=== PATIENT | male | born 1960 | race African-American/Black ===

== ENCOUNTER → 2018-10-06 | Outpatient (CLI) | payer OTHER ==
--- NOTE | 2018-10-06 17:34 | XCELERA REPORT ---
[address] [address] Lower Extremity Arterial Evaluation Name: OSEI VIDAL Age: 58 yrs Gender: Male : 1960 Patient Status: Outpatient Patient Location: Study Date: 10/06/2018 09:04 AM Procedure: A color flow and duplex scan of the lower extremity arteries was performed bilaterally with velocity and waveform anaylsis. 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 Biphasic with low normal velocity in the Anterior Tibial artery. Ankle Brachial index was not done. Left Side Arterial Evaluation Decreased velocity and biphasic waveforms noted from the Common Femoral artery to the Posterior Tibial . Monophasic with decreased velocity in the Anterior Tibial artery. Ankle Brachial index was not done. Interpretation Summary Moderate hemodynamically significant lesions in the bilateral lower extremities, on duplex imaging, at rest. Inflow disease on left, distal bilaterally suggested. : RONI ORTEGA > Tiago Mcdaniel
== END ==
LOC: SP 11:22
PROVIDERS: ATTEND Preventive Medicine Undersea and Hyperbaric Medicine
DX: I73.9 Peripheral vascular disease, unspecified (principal)
CPT/HCPCS: 93925

== ENCOUNTER 2019-04-22 14:25 | Emergency (ER) | payer OTHER ==
--- NOTE | 2019-04-22 14:52 | ER Document Report ---
ED Medical Screen (RME) - General Chief Complaint: Nausea/Vomiting Stated Complaint: VOMITING Time Seen by Provider: 04/22/19 14:39 Primary Care Provider: RONI ORTEGA DPM [Primary Care Provider] - Follow up as needed Mode of Arrival: Ambulatory Information source: Patient Notes: Patient presents to the emergency department with reports of vomiting for the past 6 days. Reports he has not been able to take his blood pressure medication or any medication or drink or eat for the past 6 days. Patient reports history of pancreatitis. He does admit to having a shot of liquor on Wednesday. Following that he has had the symptoms. Reports some abdominal discomfort. No c/o pain with abdominal palpation. Reports last bowel movement was Wednesday. I have greeted and performed a rapid initial assessment of this patient. A comprehensive ED assessment and evaluation of the patient, analysis of test results and completion of the medical decision making process will be conducted by additional ED providers. Dictation of this chart was performed using voice recognition software; therefore, there may be some unintended grammatical errors. TRAVEL OUTSIDE OF THE [place] IN LAST 30 DAYS: No - Related Data Allergies/Adverse Reactions: No Known Allergies Allergy (Verified 04/22/19 14:31) Past Medical History - Past Medical History Cardiac Medical History: Reports: Hx Hypercholesterolemia, Hx Hypertension Denies: Hx Coronary Artery Disease, Hx Heart Attack Pulmonary Medical History: Reports: Hx COPD - Not currently taking any meds, Hx Pneumonia - yrs ago Denies: Hx Asthma, Hx Bronchitis Neurological Medical History: Denies: Hx Cerebrovascular Accident, Hx Seizures Renal/ Medical History: Denies: Hx Peritoneal Dialysis GI Medical History: Reports: Hx Gastroesophageal Reflux Disease Musculoskeltal Medical History: Denies Hx Arthritis Past Surgical History: Reports: Hx Appendectomy - Immunizations Hx Diphtheria, Pertussis, Tetanus Vaccination: Yes Physical Exam - Vital signs Vitals: Temp Pulse Resp BP Pulse Ox 98.5 F 80 18 129/88 H 98 04/22/19 14:36 04/22/19 14:36 04/22/19 14:36 04/22/19 14:36 04/22/19 14:36 Course - Vital Signs Vital signs: Temp Pulse Resp BP Pulse Ox 98.5 F 80 18 129/88 H 98 04/22/19 14:36 04/22/19 14:36 04/22/19 14:36 04/22/19 14:36 04/22/19 14:36 Doctor's Discharge - Discharge Referrals: RONI ORTEGA DPM [Primary Care Provider] - Follow up as needed
[2019-04-22 15:00] LABS: ABSOLUTE BASOPHILS # (AUTO) 0.1 10^3/uL (0.0-0.2); ABSOLUTE LYMPHOCYTES (AUTO) 1.7 10^3/uL (0.5-4.7); ABSOLUTE MONOCYTES (AUTO) 0.5 10^3/uL (0.1-1.4); ABSOLUTE NEUT (AUTO) 2.3 10^3/uL (1.7-8.2); BASOPHILS % (AUTO) 1.1 % (0-2); EOSINOPHILS % (AUTO) 0.5 % (0-6); HEMATOCRIT 46.3 % (37.9-51.0); HEMOGLOBIN 15.7 g/dL (13.5-17.0); LYMPHOCYTES % (AUTO) 38.5 % (13-45); MEAN CORPUSCULAR HEMOGLOBIN 28.7 pg (27.0-33.4); MEAN CORPUSCULAR VOLUME 85 fl (80-97); MONOCYTES % (AUTO) 10.2 % (3-13); PLATELET COUNT 205 10^3/uL (150-450); RED BLOOD COUNT 5.48 10^6/uL (4.35-5.55); SEGMENTED NEUTROPHILS % (AUTO) 49.7 % (42-78); TOTAL CELLS COUNTED % (AUTO) 100 %; WHITE BLOOD COUNT 4.5 10^3/uL (4.0-10.5)
[2019-04-22 15:20] LABS: ALANINE AMINOTRANSFERASE 25 U/L (21-72); ALBUMIN 4.8 g/dL (3.5-5.0); ALKALINE PHOSPHATASE 87 U/L (38-126); AMYLASE 110 U/L (30-110); ANION GAP 11 (5-19); ASPARTATE AMINO TRANSFERASE 38 U/L (17-59); BILIRUBIN,DIRECT 0.3 mg/dL (0.0-0.4); BILIRUBIN,TOTAL 0.8 mg/dL (0.2-1.3); BLOOD UREA NITROGEN 13 mg/dL (7-20); CALCIUM 9.9 mg/dL (8.4-10.2); CARBON DIOXIDE 26 mmol/L (22-30); CHLORIDE 98 mmol/L (98-107); GLUCOSE 123 mg/dL (75-110); LIPASE 75.1 U/L (23-300); POTASSIUM 3.9 mmol/L (3.6-5.0); SODIUM 134.9 mmol/L (137-145); TOTAL PROTEIN 9.1 g/dL (6.3-8.2)
[2019-04-22 15:27] LABS: ALCOHOL < 10 mg/dL (NONE DETECTED)
[2019-04-22 15:41] LABS: APPEARANCE,URINE SLIGHTLY-CLOUDY; BILIRUBIN,URINE NEGATIVE (NEGATIVE); COLOR,URINE YELLOW; GLUCOSE, URINE NEGATIVE (NEGATIVE); KETONES,URINE 20 mg/dL (NEGATIVE); LEUKOCYTE ESTERASE,URINE NEGATIVE (NEGATIVE); NITRITE,URINE NEGATIVE (NEGATIVE); PROTEIN,URINE 100 mg/dL (NEGATIVE); URINE SPECIFIC GRAVITY 1.027
--- NOTE | 2019-04-22 15:47 | ER Document Report ---
ED General - General Chief Complaint: Nausea/Vomiting Stated Complaint: VOMITING Time Seen by Provider: 04/22/19 14:39 Primary Care Provider: RONI ORTEGA DPM [ACTIVE STAFF] - Follow up in 3-5 days Mode of Arrival: Ambulatory TRAVEL OUTSIDE OF THE [place] IN LAST 30 DAYS: No - HPI Notes: Patient is a 59-year-old male that presents to the emergency department for chief complaint of abdominal pain nausea and vomiting. Patient reports Wednesday he began having nausea and vomiting. He stated initially he was vomiting every hour but the vomiting has slowed to once or twice a day. he reports one episode of emesis today and states it was around 130 this a fternoon. Patient states he has not had a bowel movement since Wednesday but is not eating much. He did get magnesium citrate but has not taken it for concern that he may vomit it back up. He states he is passing gas. He reports history of cholecystectomy, appendectomy, and bowel obstructions in the past. He reports a mild diffuse abdominal bloating sensation. He states it is a achy pain when he vomits. He states the pain is better when he is sitting in the position. Denies associated fever, chills, chest pain, shortness of breath, palpitations and syncope. Past Medical History: History of pancreatitis, hypertension Past Surgical History: Cholecystectomy, appendectomy Social History: Occasional alcohol. Occasional tobacco. Denies drug use Family History: Reviewed and noncontributory for presenting illness Allergies: Reviewed, see documented allergy list. REVIEW OF SYSTEMS: CONSTITUTIONAL : No fever No chills No diaphoresis No recent illness EENT: No vision changes No congestion No sore throat CARDIOVASCULAR: No chest pain No palpitations RESPIRATORY: No shortness of breath No cough No difficulty breathing GASTROINTESTINAL: abdominal pain nausea vomiting Constipation No diarrhea GENITOURINARY: No dysuria No hematuria No difficulty urinating MUSCULOSKELETAL: No back pain No leg pain No arm pain SKIN: No rashes No lesions LYMPHATIC: No swollen, enlarged glands. NEUROLOGICAL: No lightheadedness No headache No weakness No paresthesias PSYCHIATRIC: No anxiety No depression PHYSICAL EXAMINATION: Vital signs reviewed, nursing noted reviewed. GENERAL: Well-appearing, well-nourished and in no acute distress. HEAD: Atraumatic, normocephalic. EYES: Eyes appear normal, extraocular movements intact, sclera anicteric, conjunctiva are normal. ENT: nares patent, oropharynx clear without exudates. Moist mucous membranes. NECK: Normal range of motion, supple without lymphadenopathy LUNGS: Breath sounds clear to auscultation bilaterally and equal. No wheezes rales or rhonchi. HEART: Regular rate and rhythm without murmurs ABDOMEN: Soft, nontender, normoactive bowel sounds. No rebound, guarding, or rigidity. No masses appreciated. EXTREMITIES: Nontender, good range of motion, no pitting or edema. NEUROLOGICAL: No focal neurological deficits. Moves all extremities spontaneously Motor and sensory grossly intact on exam. PSYCH: Normal mood, normal affect. SKIN: Warm, Dry, normal turgor, no rashes or lesions noted on exposed skin - Related Data Allergies/Adverse Reactions: No Known Allergies Allergy (Verified 04/22/19 14:31) Past Medical History - General Information source: Patient - Social History Smoking Status: Unknown if Ever Smoked Family History: Reviewed & Not Pertinent Patient has suicidal ideation: No Patient has homicidal ideation: No - Past Medical History Cardiac Medical History: Reports: Hx Hypercholesterolemia, Hx Hypertension Denies: Hx Coronary Artery Disease, Hx Heart Attack Pulmonary Medical History: Reports: Hx COPD - Not currently taking any meds, Hx Pneumonia - yrs ago Denies: Hx Asthma, Hx Bronchitis Neurological Medical History: Denies: Hx Cerebrovascular Accident, Hx Seizures Renal/ Medical History: Denies: Hx Peritoneal Dialysis GI Medical History: Reports: Hx Gastroesophageal Reflux Disease Musculoskeletal Medical History: Denies Hx Arthritis Past Surgical History: Reports: Hx Appendectomy - Immunizations Hx Diphtheria, Pertussis, Tetanus Vaccination: Yes Physical Exam - Vital signs Vitals: Temp Pulse Resp BP Pulse Ox 98.5 F 80 18 129/88 H 98 04/22/19 14:36 04/22/19 14:36 04/22/19 14:36 04/22/19 14:36 04/22/19 14:36 Course - Re-evaluation Re-evalutation: 04/22/19 15:46 Vitals reviewed. Nursing notes reviewed. Patient is well-appearing and in no acute distress. He has no abdominal tenderness and stated that it felt good when I was palpating his abdomen. His lab work shows no elevated lipase to suggest acute pancreatitis. He has no renal insufficiency or electrolyte derangement. Clinically appears well-hydrated and nontoxic. He has no leukocytosis to suggest acute infection. KUB will be ordered to screen for possible bowel obstruction however my suspicion at this point is low given his benign abdominal exam. Laboratory 04/22/19 04/22/19 14:50 14:50 WBC 4.5 RBC 5.48 Hgb 15.7 Hct 46.3 MCV 85 MCH 28.7 MCHC 34.0 RDW 14.0 Plt Count 205 Seg Neutrophils % 49.7 Lymphocytes % 38.5 Monocytes % 10.2 Eosinophils % 0.5 Basophils % 1.1 Absolute Neutrophils 2.3 Absolute Lymphocytes 1.7 Absolute Monocytes 0.5 Absolute Eosinophils 0.0 Absolute Basophils 0.1 Sodium 134.9 L Potassium 3.9 Chloride 98 Carbon Dioxide 26 Anion Gap 11 BUN 13 Creatinine 0.84 Est GFR ( Amer) > 60 Est GFR (Non-Af Amer) > 60 Glucose 123 H Calcium 9.9 Total Bilirubin 0.8 Direct Bilirubin 0.3 Neonat Total Bilirubin Not Reportable Neonat Direct Bilirubin Not Reportable Neonat Indirect Bili Not Reportable AST 38 ALT 25 Alkaline Phosphatase 87 Total Protein 9.1 H Albumin 4.8 Amylase 110 Lipase 75.1 Serum Alcohol < 10 04/22/19 16:34 Patient's KUB shows no free air or pattern of obstruction. He is otherwise well-appearing. He will be discharged home with Zofran. Patient told to take the magnesium citrate that he has at home for his apparent constipation. He will follow with primary care for reevaluation in the next few days. He will return for new or worsening symptoms. KUB X-Ray 04/22/19 15:44 IMPRESSION: Nonobstructive pattern of bowel gas with gas present to the rectum. There is gas and stool present in the left and right colon without obvious large burden of stool. No free air in the abdomen on supine radiograph. Laboratory 04/22/19 04/22/19 04/22/19 14:50 14:50 15:08 WBC 4.5 RBC 5.48 Hgb 15.7 Hct 46.3 MCV 85 MCH 28.7 MCHC 34.0 RDW 14.0 Plt Count 205 Seg Neutrophils % 49.7 Lymphocytes % 38.5 Monocytes % 10.2 Eosinophils % 0.5 Basophils % 1.1 Absolute Neutrophils 2.3 Absolute Lymphocytes 1.7 Absolute Monocytes 0.5 Absolute Eosinophils 0.0 Absolute Basophils 0.1 Sodium 134.9 L Potassium 3.9 Chloride 98 Carbon Dioxide 26 Anion Gap 11 BUN 13 Creatinine 0.84 Est GFR ( Amer) > 60 Est GFR (Non-Af Amer) > 60 Glucose 123 H Calcium 9.9 Total Bilirubin 0.8 Direct Bilirubin 0.3 Neonat Total Bilirubin Not Reportable Neonat Direct Bilirubin Not Reportable Neonat Indirect Bili Not Reportable AST 38 ALT 25 Alkaline Phosphatase 87 Total Protein 9.1 H Albumin 4.8 Amylase 110 Lipase 75.1 Urine Color YELLOW Urine Appearance SLIGHTLY-CLOUDY Urine pH 6.0 Ur Specific [place] 1.027 Urine Protein 100 H Urine Glucose (UA) NEGATIVE Urine Ketones 20 H Urine Blood NEGATIVE Urine Nitrite NEGATIVE Urine Bilirubin NEGATIVE Urine Urobilinogen 2.0 H Ur Leukocyte Esterase NEGATIVE Urine WBC (Auto) 1 Urine RBC (Auto) 2 Urine Bacteria (Auto) TRACE Squamous Epi Cells Auto <1 Urine Mucus (Auto) MANY Urine Ascorbic Acid NEGATIVE Serum Alcohol < 10 - Vital Signs Vital signs: Temp Pulse Resp BP Pulse Ox 98.5 F 80 18 129/88 H 98 04/22/19 14:36 04/22/19 14:36 04/22/19 14:36 04/22/19 14:36 04/22/19 14:36 - Laboratory Result Diagrams: 04/22/19 14:50 04/22/19 14:50 Laboratory results interpreted by me: 04/22/19 04/22/19 14:50 15:08 Sodium 134.9 L Glucose 123 H Total Protein 9.1 H Urine Protein 100 H Urine Ketones 20 H Urine Urobilinogen 2.0 H Discharge - Discharge Clinical Impression: Abdominal pain, generalized Nausea and vomiting Qualifiers: Vomiting type: unspecified Vomiting Intractability: non-intractable Qualified Code(s): R11.2 - Nausea with vomiting, unspecified Constipation Qualifiers: Constipation type: other constipation type Qualified Code(s): K59.09 - Other constipation Condition: Stable Disposition: HOME, SELF-CARE Instructions: Abdominal Pain ([facility]), Vomiting ([facility]) Additional Instructions: Please return to the emergency department if you have any worsening, or concern of your symptoms. Please return to the emergency department if you develop chest pain, difficulty breathing, severe abdominal pain, or ongoing vomiting. Please follow-up with your primary care physician in 2-3 days and any other recommended physicians. If prescribed, take all medications as directed. If you have any questions or concerns do not hesitate to return the emergency department for evaluation. Prescriptions: Ondansetron [Zofran Odt 4 mg Tablet] 1 tab PO Q4H PRN #15 tab.rapdis PRN Reason: For Nausea/Vomiting Referrals: RONI ORTEGA DPM [ACTIVE STAFF] - Follow up in 3-5 days
--- NOTE | 2019-04-22 16:24 | RADIOLOGY REPORT (SQ) ---
EXAM DESCRIPTION: KUB/ABDOMEN (SINGLE VIEW) COMPLETED DATE/TIME: 04/22/2019 3:58 pm REASON FOR STUDY: abdominal pain COMPARISON: None. NUMBER OF VIEWS: One view. TECHNIQUE: Supine radiographic image of the abdomen acquired. LIMITATIONS: None. FINDINGS: BOWEL GAS PATTERN: Normal bowel gas pattern. No dilated loops. Stool in the left and righ t colon without obvious large burden of stool. CALCIFICATIONS: No suspicious calcifications. SOFT TISSUES: No gross mass or suggestion of organomegaly. HARDWARE: None in the abdomen. BONES: No acute fracture. No worrisome bone lesions. OTHER: Vascular calcifications. IMPRESSION: Nonobstructive pattern of bowel gas with gas present to the rectum. There is gas and st ool present in the left and right colon without obvious large burden of stool. No free air in the ab domen on supine radiograph. TECHNICAL DOCUMENTATION: JOB ID: [id number] [employer]- All Rights Reserved Reading location - IP/workstation name: [email or web address]
[2019-04-22 17:00] VITALS: BP 129/82
== END 2019-04-22 17:00 | disposition home or self-care (01) ==
LOC: ER 14:25
DX: R10.84 Generalized abdominal pain (principal); K59.09 Other constipation; R11.2 Nausea with vomiting, unspecified; Z90.49 Acquired absence of other specified parts of digestive tract; I10 Essential (primary) hypertension; J44.9 Chronic obstructive pulmonary disease, unspecified
CPT/HCPCS: 36415; 74018; 80053; 80307; 81001; 82150; 83690; 85025; 99283